=== PATIENT | female | born 1990 | race Two or more races ===

== ENCOUNTER 2024-09-10 15:31 | Emergency (ER) | payer MEDICAID, SELFPAY ==
[2024-09-10 15:43] VITALS: BP 107/71; PULSE 130; RESP 18; TEMP 36.6; O2SAT 99; BMI 25.6
[2024-09-10 16:21] VITALS: BP 110/77; PULSE 117; RESP 19; TEMP 36.9; O2SAT 97
--- NOTE | 2024-09-10 16:39 | XR_ITS ---
Examination: Abdomen sonogram, Limited Date and time of exam: September 10, 2024 1721 hrs. Indications: Upper abdominal pain nausea vomiting today Technique: Real-time noel scale transabdominal sonographic images of the upper abdomen obtained. Findings: Normal gallbladder. Normal common bile duct 0.2 cm Pancreatic head 2.0 cm Liver 16.6 cm smooth contour no focal liver lesions Normal hepatopedal portal venous flow Patent IVC Impression: Normal gallbladder Mild hepatomegaly no focal liver lesions
--- NOTE | 2024-09-10 16:40 | PD.EDRME ---
Rapid Medical Screening Exam RME Arrival date/time: 09/10/24 15:31 34-year-old female presents to the emergency department with complaints of upper abdominal pain associated with nausea. I have greeted and performed a focused initial assessment of this patient. Initial appropriate labs ordered at this time. A comprehensive ED assessment and evaluation of the patient and analysis of all test and completion of medical decision making process will be conducted by additional ED provider. Chief Complaint: Abdominal Pain Time Seen by Provider: 09/10/24 16:18 Vital signs: Vital Signs Temperature 98 F 09/10/24 15:43 Pulse Rate 130 H 09/10/24 15:43 Respiratory Rate 18 09/10/24 15:43 Blood Pressure 107/71 09/10/24 15:43 Pulse Oximetry (%) 99 09/10/24 15:43 Oxygen Delivery Method Room Air 09/10/24 15:43
[2024-09-10 16:41] VITALS: PULSE 110
[2024-09-10 17:00] LABS: Collection Type, Urine Clean Catch
[2024-09-10] MEDS: MG HYD/AL HYD/SIME (Maalox Reg) SUSP 30 ML UDC PO ×2 (17:01→19:33)
[2024-09-10] MEDS: LIDOCAINE VISCOUS 2% 15 ML UDC PO (17:01)
[2024-09-10] MEDS: ONDANSETRON ODT 4 MG TABRAP PO (17:01)
[2024-09-10 17:17] LABS: HCG Qualitative,Urine Negative
[2024-09-10 17:28] LABS: Basophils # (Auto) 0.1 Thou/mm3 (0.0-0.2); Basophils % (Auto) 1 % (0-2.5); Eosinophils # (Auto) 0.1 Thou/mm3 (0.0-0.5); Eosinophils % (Auto) 1 % (0-10); Hematocrit 42.1 % (36.0-46.0); Hemoglobin 14.6 g/dL (12.0-16.0); Immature Granulocytes % (Auto) 0 % (0-0); Immature Granulocytes Auto 0.02 Thou/mm3 (0.00-0.00); Lymphocytes # (Auto) 2.1 Thou/mm3 (1.0-4.8); Lymphocytes % (Auto) 24 % (10-50); Mean Corpuscular HGB Conc 34.7 g/dl (31.0-37.0); Mean Corpuscular Hemoglobin 28.5 pg (25.0-35.0); Mean Corpuscular Volume 82 fL (80-100); Monocytes # (Auto) 0.6 Thou/mm3 (0.0-0.8); Monocytes % (Auto) 7 % (0-12); Neutrophils # (Auto) 5.5 Thou/mm3 (1.8-7.7); Neutrophils % (Auto) 66 % (37-80); Nucleated Red Blood Cell % 0 /100 WBC (0); Platelet Count 243 Thou/mm3 (140-440); RDW Standard Deviation 36.5 fL (36.4-46.3); Red Blood Count 5.13 Miln/mm3 (4.00-5.20); White Blood Count 8.4 Thou/mm3 (3.6-11.0)
[2024-09-10 17:30] LABS: Bilirubin,Urine Negative (Negative); Blood,Urine Negative (Negative); Clarity,Urine Clear (Clear/Hazy); Color,Urine Yellow (Lt Yel-Yel); Glucose, Urine 4+ (Negative); Ketones,Urine Negative (Negative); Leukocyte Esterase,Urine Negative (Negative); Nitrite,Urine Negative (Negative); Protein,Urine Negative (Neg - Trace); RBC,Urine 6 /hpf (0-3); Specific Gravity,Urine 1.027 (1.001-1.035); Squamous Epithelial Cell,Urine 11 /hpf (0-5); Urobilinogen,Urine Negative mg/dL (0.0-1.0); WBC,Urine 13 /hpf (0-5)
[2024-09-10 17:45] LABS: Alanine Aminotransferase 15 U/L (10-49); Albumin/Globulin Ratio 1.9 (1.2-2.2); Alkaline Phosphatase 71 U/L (46-116); Anion Gap 8 (7-16); Aspartate Amino Transferase 15 U/L (0-34); BUN/Creatinine Ratio 16 Ratio (12-20); Bilirubin,Total 0.5 mg/dL (0.3-1.2); Blood Urea Nitrogen 13 mg/dL (9-23); Calcium 10.1 mg/dL (8.3-10.6); Calcium (Corrected) 10.1 mg/dL (8.5-10.1); Carbon Dioxide 28.1 mMol/L (20.0-31.0); Chloride 101 mMol/L (98-107); Creatinine (Component) 0.8 mg/dL (0.6-1.3); Estimated Creatinine Clearance 80.7 mL/min (>60); Globulin 2.7 gm/dL (2.3-3.5); Glucose 140 mg/dL (74-106); Lipase 42 U/L (12-53); Osmolality,Calculated 275 (275-295); Potassium 4.2 mMol/L (3.4-5.1); Sodium 137 mMol/L (136-145); Total Protein 7.7 gm/dL (5.7-8.2); eGFR > 60 See Note
--- NOTE | 2024-09-10 19:25 | EDNOTE_ITS ---
ED Abdominal Pain RME/HPI General Chief Complaint: Abdominal Pain Stated complaint: LOWER ABD PAIN RAD TO BACK Time seen by provider: 09/10/24 16:18 Arrival date/time: 09/10/24 15:31 RME / HPI RME / HPI narrative: 09/10/24 15:31 34-year-old female presents to the emergency department with complaints of upper abdominal pain associated with nausea. I have greeted and performed a focused initial assessment of this patient. Initial appropriate labs ordered at this time. A comprehensive ED assessment and evaluation of the patient and analysis of all test and completion of medical decision making process will be conducted by additional ED provider. ----- Dr. Morgan?s Main ED Evaluation: 34yo female presents to the ED for a chief complaint of lower abdominal pain that radiates to her epigastric area x this morning. Patient reports associated nausea, vomiting, a headache, mild body aches, and sweating. She denies any cough, sore throat, runny nose, sneezing, diarrhea or any other associated symptoms. She denies any previous abdominal surgeries. Last bowel movement was yesterday. No known allergies. Related Data Home Medications ?Medication ?Instructions ?Recorded ?Confirmed metformin 1,000 mg tablet 1,000 mg PO BID 10/29/19 10/29/19 Previous Rx's ?Medication ?Instructions ?Recorded amoxicillin 875 mg-potassium 1 tab PO BID #14 tabs 10/31/19 clavulanate 125 mg tablet (Augmentin) clindamycin HCl 300 mg capsule 600 mg (2 x 300 mg) PO TID #42 caps 10/31/19 hydrocodone 10 mg-acetaminophen 1 tab PO Q6H PRN Pain #15 tabs 10/31/19 325 mg tablet ([place]) insulin glargine 100 unit/mL 15 unit (0.15 mL) subcut HS #450 10/31/19 subcutaneous solution (Lantus multiple units U-100 Insulin) famotidine 20 mg tablet 20 mg PO QDAY #14 tabs 06/12/22 ibuprofen 600 mg tablet 600 mg PO Q6H #30 tabs 01/31/24 aluminum-mag hydroxide-simethicone 10 ml PO TID PRN indigestion #360 09/10/24 400 mg-400 mg-40 mg/5 mL oral susp mL (Advanced Antacid-Antigas) famotidine 20 mg tablet (Pepcid) 20 mg PO QDAY #10 tabs 09/10/24 nitrofurantoin 100 mg PO Q12H 7 days #14 caps 09/10/24 monohydrate/macrocrystals 100 mg capsule (Macrobid) Allergies Allergy/AdvReac Type Severity Reaction Status Date / Time No Known Allergies Allergy Verified 01/31/24 10:33 Review of Systems Review of Systems Systems Reviewed: All systems reviewed, normal except as documented Narrative Review of Systems: Gen: No fever, no chills, no weight loss, +sweating, + body aches EYES: No discharge, no visual changes, no pain HEENT: No ear pain, no congestion, no sore throat PULM: No shortness of breath, no cough, no congestion CV: No chest pain, no dyspnea on exertion, no palpitations GI: + nausea, + vomiting, no diarrhea, + pain, no constipation : No frequency, no urgency, no dysuria Musc/skel: No joint pain, no back pain Skin: No rash. Warm and dry. Psyc: No hallucinations, no depression Heme/Lymph: No easy bleeding or bruising tendencies Neuro: No weakness, + headache Past Medical History Past Medical History NEUROLOGIC: Negative Neurological Disorders CARDIAC: Negative Cardiac Disorders, Congestive Heart Failure or Hypertension RESPIRATORY: Negative Chronic Obstructive Pulmonary Disease (COPD) or Asthma GASTROINTESTINAL: Positive Pancreatitis; Negative Gastrointestinal Disorders GENITOURINARY: Positive Genitourinary Disorders and Dialysis; Negative Renal Disease MUSCULOSKELETAL: Negative Musculoskeletal Disorders ENDOCRINE: Positive Endocrine Disorders, Diabetes Mellitus Type 1 and Diabetes Mellitus Type 2 HEMATOLOGIC: Negative Sickle Cell Disease OTHER HISTORY: Negative Autoimmune Disease Family History FAMILY HISTORY: Positive Family Cardiac Disorders and Family Cancer Surgical History SURGICAL: Positive Nephrectomy Social History SMOKING STATUS: Never smoker ED Exam Narrative Physical exam: GENERAL APPEARANCE: alert and oriented x 4, well-developed, well-nourished, no acute distress VITALS: All vitals were reviewed and the pulse ox is 97% on room air, which is normal according to my interpretation. HEENT: Normocephalic, atraumatic; pupils equal, round, reactive to light; EOMI; mucous membranes pink, moist; oropharynx clear NECK: Supple LUNGS: CTABL; no wheezes, no rales, no rhonchi HEART: Regular rate, regular rhythm; normal S1, S2; no murmurs ABDOMEN: non distended; normal BS; soft, [id number] epigastric tenderness, no guarding, no rebound; no masses, no organomegaly, no hernia BACK: no CVA tenderness EXTREMITIES: atraumatic; no edema NEUROLOGIC: awake; alert and oriented x4; cranial nerves II-XII grossly intact; no focal sensory or motor deficits PSYCHIATRIC: appropriate mood and affect SKIN: warm, dry, normal color; no rashes Course Quality Measures none Orders Category Date Time Status US gall bladder Stat Exams 09/10/24 16:39 Completed CBC Stat Lab 09/10/24 17:06 Completed Comprehensive Metabolic Panel Stat Lab 09/10/24 17:06 Completed HCG Qualitative,Urine Stat Lab 09/10/24 16:57 Completed Lipase Stat Lab 09/10/24 17:06 Completed Urinalysis Stat Lab 09/10/24 16:57 Completed Urine Culture Stat Lab 09/10/24 16:57 Received Lidocaine 2% Viscous [Xylocaine 2% Viscous] Med 09/10/24 16:39 Discontinued 15 ml PO X1 ONE Ondansetron Odt [Zofran Odt] Med 09/10/24 16:39 Discontinued 4 mg PO X1 ONE mg Hyd/Al Hyd/[place] Susp [Maalox Susp] Med 09/10/24 16:39 Discontinued 30 ml PO X1 ONE mg Hyd/Al Hyd/[place] Susp [Maalox Susp] Med 09/10/24 19:29 Once 30 ml PO X1 ONE Vital Signs Vital signs: Vital Signs Temperature 98 F 09/10/24 15:43 Pulse Rate 130 H 09/10/24 15:43 Respiratory Rate 18 09/10/24 15:43 Blood Pressure 107/71 09/10/24 15:43 Pulse Oximetry (%) 99 09/10/24 15:43 Oxygen Delivery Method Room Air 09/10/24 15:43 Abdominal Pain MDM MDM Narrative MDM Narrative:: Scribe Attestation: 09/10/24 Regla Rendon am scribing for and in the presence of Dr. Morgan. Patient data External records reviewed:: [facility] previous records (Per chart review, patient was seen here on 01/31/24 for a headache.) Clinical information provided by:: patient Social determinants that could affect healthcare access:: none Patient has the following chronic illnesses:: DM How is presenting disease/condition affected by chronic disease/condition?: uneffected by Evaluation data The following diagnostics were reviewed and interpreted by me:: lab results and radiology exam(s) Lab and/or radiology exams considered but not ordered:: none Interpretation Summary: CBC is normal, Glucose is 140, LFTs are normal, Total Bilirubin is normal, Lipase is normal, HCG is negative, UA is positive for a UTI, according to my interpretation. ---- [facility] Report Signed Patient: ABRIL BENNETT Record#: [id number] Birthdate: 1990 Age/Sex: 34 / F [facility] Attending Dr: Ordering Physician: Kellee Hansen Date of Service: 09/10/24 Procedure(s): US gall bladder Accession Number(s): [id number] cc: Ravi Sharp MD; Kellee Hansen~ Examination: Abdomen sonogram, Limited Date and time of exam: September 10, 2024 1721 hrs. Indications: Upper abdominal pain nausea vomiting today Technique: Real-time noel scale transabdominal sonographic images of the upper abdomen obtained. Findings: Normal gallbladder. Normal common bile duct 0.2 cm Pancreatic head 2.0 cm Liver 16.6 cm smooth contour no focal liver lesions Normal hepatopedal portal venous flow Patent IVC Impression: Normal gallbladder Mild hepatomegaly no focal liver lesions Dictated By: Ravi Sharp MD Signed By: <Electronically signed by Ravi Sharp MD in OV> 09/10/24 1749 Medications / Prescriptions Medications or Prescriptions considered but not ordered:: none Medication administrations:: Medication Administration History Discontinued Medications Al Hydrox/Mg Hydrox/Simethicone (Mg Hyd/Al Hyd/[place] (Maalox Reg) Susp 30 Ml Udc) 30 ml PO X1 ONE Stop: 09/10/24 16:40 Last Admin: 09/10/24 17:01 Dose: 30 ml Documented By: XENA Lidocaine HCl (Lidocaine Viscous 2% 15 Ml Udc) 15 ml PO X1 ONE Stop: 09/10/24 16:40 Last Admin: 09/10/24 17:01 Dose: 15 ml Documented By: XENA Ondansetron HCl (Ondansetron Odt 4 Mg Tabrap) 4 mg PO X1 ONE; Protocol Stop: 09/10/24 16:40 Last Admin: 09/10/24 17:01 Dose: 4 mg Documented By: KF see above Consultations Consultation(s) initiated? (list below): No Diagnosis Differential diagnosis abdominal pain: acute appendicitis, diverticulitis, pancreatitis and other (cholelithiasis, cholecystitis, dehydration, electrolyte abnormality) Most likely diagnosis given after review of the tests above:: epigastric pain, UTI Admission Indicated Admission indicated?: not indicated Explain why admission is indicated or not indicated:: Admission criteria not met. Admission Request Was there a request for admission?: No Disposition Plan Disposition Plan: Discharge Discharge Attestation Discharge Attestation: The patient and all family members were given an opportunity to ask questions and understood the discharge instructions. Discharge instructions specifically effects, indications for sooner follow up or return to the emergency department, and the expected course of current diagnosis. Patient condition: Stable Discharge Plan Plan Patient Disposition: HOME (Self Care) Disposition Comment: Stable for discharge Patient condition on transfer: Stable Prescriptions/Referrals Prescriptions/Med Rec: New nitrofurantoin monohyd/m-cryst [Macrobid] 100 mg capsule 100 mg PO Q12H 7 Days Qty: 14 0RF Rx Instructions: must administer with a meal/food alum-mag hydroxide-simeth [Advanced Antacid-Antigas] 400-400-40 mg/5 mL suspension 10 ml PO TID PRN (Reason: indigestion) Qty: 360 0RF famotidine [Pepcid] 20 mg tablet 20 mg PO QDAY Qty: 10 0RF No Action metformin 1,000 mg Tablet 1,000 mg PO BID clindamycin HCl 300 mg capsule 600 mg PO TID Qty: 42 0RF Lantus U-100 Insulin 100 unit/mL Solution 15 unit subcut HS Qty: 450 0RF amoxicillin-pot clavulanate [Augmentin] 875-125 mg tablet 1 tab PO BID Qty: 14 0RF hydrocodone-acetaminophen [[place]] 10-325 mg Tablet 1 tab PO Q6H MDD 4 PRN (Reason: Pain) Qty: 15 0RF famotidine 20 mg tablet 20 mg PO QDAY Qty: 14 0RF ibuprofen 600 mg tablet 600 mg PO Q6H Qty: 30 0RF Referrals: Deandre Harvey PA-C [Primary Care Provider] - In 1 week Problem List Clinical Impression: Epigastric pain, UTI (urinary tract infection) Patient/Caregiver Discharge Instructions Discharge Activity: activity as tolerated Education Materials: Urinary Tract Infections in Women, Understanding Urinary Tract ..., ED Epigastric Pain (Uncertain Cause) Additional Instructions: Please pay attention to your body. If you are feeling worse in any way or if you are not improving in the next couple of days he should return to the ER right away. Otherwise you should follow-up with your primary care doctor within the next several days. You have several medications waiting for you at your [facility]. One of them is an antibiotic called Macrobid. You should take those until they are completely gone. This is for your urinary tract infection. Print Language: Turkish Stand Alone Forms: Esthela Award Info., Patient Portal Info Letter
== END 2024-09-10 19:46 | disposition home or self-care (01) ==
PROVIDERS: Nurse Practitioner Primary Care; Emergency Provider Emergency Medicine; PCP Family Medicine
DX: R16.0 Hepatomegaly, not elsewhere classified (principal); N39.0 Urinary tract infection, site not specified
CPT/HCPCS: 36415; 76705; 80053; 81001; 81025; 83690; 85025; 87086; 99284; J3490; Q0162; A9270

== ENCOUNTER 2025-01-24 11:10 | Emergency (ER) | payer MEDICAID, SELFPAY ==
[2025-01-24 11:33] VITALS: BP 113/70; PULSE 91; RESP 19; TEMP 36.8; O2SAT 97; BMI 29.2
--- NOTE | 2025-01-24 11:43 | PD.EDRME ---
Rapid Medical Screening Exam RME Arrival date/time: 01/24/25 11:10 34-year-old female with a history of type 2 diabetes, presents to the emergency room with a chief complaint of a blood sugar of 300, headache, weakness. Patient states she was sent over by her primary care provider. I have greeted and performed a focused initial assessment of this patient. A comprehensive ED assessment and evaluation of the patient, analysis of all test results, and completion of the medical decision making process will be conducted by additional ED providers. Chief Complaint: General Adult/Misc Complain Time Seen by Provider: 01/24/25 11:26 Vital signs: Vital Signs Temperature 98.3 F 01/24/25 11:33 Pulse Rate 91 01/24/25 11:33 Respiratory Rate 19 01/24/25 11:33 Blood Pressure 113/70 01/24/25 11:33 Pulse Oximetry (%) 97 01/24/25 11:33 Oxygen Delivery Method Room Air 01/24/25 11:33 Vital signs reviewed by provider: Yes
[2025-01-24] MEDS: ACETAMINOPHEN 325 MG TABLET 650 MG PO (11:48)
[2025-01-24] MEDS: ONDANSETRON ODT 4 MG TABRAP PO (11:49)
[2025-01-24 12:05] LABS: Collection Type, Urine Clean Catch
[2025-01-24 12:07] LABS: Basophils # (Auto) 0.1 Thou/mm3 (0.0-0.2); Basophils % (Auto) 1 % (0-2.5); Eosinophils # (Auto) 0.1 Thou/mm3 (0.0-0.5); Eosinophils % (Auto) 1 % (0-10); Hematocrit 37.2 % (36.0-46.0); Hemoglobin 13.3 g/dL (12.0-16.0); Immature Granulocytes % (Auto) 0 % (0-0); Immature Granulocytes Auto 0.02 Thou/mm3 (0.00-0.00); Lymphocytes % (Auto) 32 % (10-50); Mean Corpuscular HGB Conc 35.8 g/dl (31.0-37.0); Mean Corpuscular Hemoglobin 27.5 pg (25.0-35.0); Mean Corpuscular Volume 77 fL (80-100); Monocytes # (Auto) 0.4 Thou/mm3 (0.0-0.8); Monocytes % (Auto) 6 % (0-12); Neutrophils # (Auto) 3.7 Thou/mm3 (1.8-7.7); Neutrophils % (Auto) 59 % (37-80); Nucleated Red Blood Cell % 0 /100 WBC (0); Platelet Count 279 Thou/mm3 (140-440); RDW Standard Deviation 34.9 fL (36.4-46.3); Red Blood Count 4.84 Miln/mm3 (4.00-5.20); White Blood Count 6.2 Thou/mm3 (3.6-11.0)
[2025-01-24 12:15] LABS: Beta Hydroxybutyrate 0.2 mmol/L (<0.6)
[2025-01-24 12:21] LABS: Alanine Aminotransferase 21 U/L (10-49); Albumin, Serum 4.6 gm/dL (3.5-5.0); Albumin/Globulin Ratio 1.6 (1.2-2.2); Alkaline Phosphatase 80 U/L (46-116); Anion Gap 8 (7-16); Aspartate Amino Transferase 18 U/L (0-34); BUN/Creatinine Ratio 15 Ratio (12-20); Bilirubin,Total 0.8 mg/dL (0.3-1.2); Blood Urea Nitrogen 12 mg/dL (9-23); Calcium 9.2 mg/dL (8.3-10.6); Calcium (Corrected) 9.2 mg/dL (8.5-10.1); Carbon Dioxide 27.2 mMol/L (20.0-31.0); Chloride 98 mMol/L (98-107); Creatinine (Component) 0.8 mg/dL (0.6-1.3); Estimated Creatinine Clearance 86.1 mL/min (>60); Globulin 2.9 gm/dL (2.3-3.5); Glucose 362 mg/dL (74-106); Lipase 40 U/L (12-53); Osmolality,Calculated 281 (275-295); Potassium 4.5 mMol/L (3.4-5.1); Sodium 133 mMol/L (136-145); Total Protein 7.5 gm/dL (5.7-8.2); eGFR > 60 See Note
[2025-01-24 12:43] LABS: HCG Qualitative,Urine Negative
[2025-01-24 12:45] LABS: Bacteria,Urine Rare; Bilirubin,Urine Negative (Negative); Blood,Urine Negative (Negative); Budding Yeast,Urine Present; Clarity,Urine Clear (Clear/Hazy); Color,Urine Colorless (Lt Yel-Yel); Glucose, Urine 4+ (Negative); Ketones,Urine Negative (Negative); Leukocyte Esterase,Urine Negative (Negative); Nitrite,Urine Negative (Negative); PH,Urine 7.5 (5.0-7.0); Protein,Urine Negative (Neg - Trace); RBC,Urine < 1 /hpf (0-3); Specific Gravity,Urine 1.029 (1.001-1.035); Squamous Epithelial Cell,Urine 1 /hpf (0-5); Urobilinogen,Urine Negative mg/dL (0.0-1.0); WBC,Urine < 1 /hpf (0-5)
--- NOTE | 2025-01-24 16:46 | PD.EDWEAK ---
ED Weakness RME/HPI General Chief complaint: General Adult/Misc Complain Stated complaint: BLOOD SUGAR 375, TOOK 40U INSULIN THIS AM Time Seen by Provider: 01/24/25 11:26 Arrival date/time: 01/24/25 11:10 Limitations: no limitations RME / HPI RME / HPI Narrative: 01/24/25 11:10 34-year-old female with a history of type 2 diabetes, presents to the emergency room with a chief complaint of a blood sugar of 300, headache, weakness. Patient states she was sent over by her primary care provider. I have greeted and performed a focused initial assessment of this patient. A comprehensive ED assessment and evaluation of the patient, analysis of all test results, and completion of the medical decision making process will be conducted by additional ED providers. DR. ABRAHAM MAIN ED EVALUATION: 34 year old female with past medical history significant for diabetes mellitus presents to the Emergency Department with complaints of high blood glucose with associated generalized weakness. No other symptoms reported. No tobacco, alcohol, or substance use. PCP: [facility] Related Data Home Medications ?Medication ?Instructions ?Recorded ?Confirmed metformin 1,000 mg tablet 1,000 mg PO BID 10/29/19 10/29/19 Previous Rx's ?Medication ?Instructions ?Recorded amoxicillin 875 mg-potassium 1 tab PO BID #14 tabs 10/31/19 clavulanate 125 mg tablet (Augmentin) clindamycin HCl 300 mg capsule 600 mg (2 x 300 mg) PO TID #42 caps 10/31/19 hydrocodone 10 mg-acetaminophen 1 tab PO Q6H PRN Pain #15 tabs 10/31/19 325 mg tablet ([place]) insulin glargine 100 unit/mL 15 unit (0.15 mL) subcut HS #450 10/31/19 subcutaneous solution (Lantus multiple units U-100 Insulin) famotidine 20 mg tablet 20 mg PO QDAY #14 tabs 06/12/22 ibuprofen 600 mg tablet 600 mg PO Q6H #30 tabs 01/31/24 aluminum-mag hydroxide-simethicone 10 ml PO TID PRN indigestion #360 09/10/24 400 mg-400 mg-40 mg/5 mL oral susp mL (Advanced Antacid-Antigas) famotidine 20 mg tablet (Pepcid) 20 mg PO QDAY #10 tabs 09/10/24 ondansetron 4 mg disintegrating 4 mg PO Q6H PRN nausea and 09/10/24 tablet vomiting #14 tabs Allergies Allergy/AdvReac Type Severity Reaction Status Date / Time No Known Allergies Allergy Verified 01/24/25 11:13 Review of Systems Review of Systems Systems Reviewed: All systems reviewed, normal except as documented Narrative Review of Systems: GEN: No fever, no chills, no weight loss EYES: No discharge, no visual changes, no pain HEENT: No ear pain, no congestion, no sore throat PULM: No shortness of breath, no cough, no congestion CV: No chest pain, no dyspnea on exertion, no palpitations GI: No nausea, no vomiting, no diarrhea, no pain, no constipation : No frequency, no urgency and no dysuria MUSC/SKEL: No joint pain, no back pain SKIN: No rash PSYCH: No hallucinations, no depression HEME/LYMPH: No easy bleeding or bruising tendencies NEURO: + generalized weakness, no headache Past Medical History Past Medical History GASTROINTESTINAL: Positive Pancreatitis GENITOURINARY: Positive Genitourinary Disorders and Dialysis ENDOCRINE: Positive Endocrine Disorders and Diabetes Mellitus Type 2 Family History FAMILY HISTORY: Positive Family Cardiac Disorders and Family Cancer Surgical History SURGICAL: Positive Nephrectomy Social History SMOKING STATUS: Never smoker SUBSTANCE USE: does not use ALCOHOL: Never ED Exam General Limitations: Present no limitations General appearance: Present alert and in no apparent distress Head Head exam: Present atraumatic, normocephalic and normal inspection Eye Eye exam: Present normal appearance, PERRL and EOMI ENT ENT exam: Present normal exam, normal oropharynx and mucous membranes moist Neck Neck exam: Present normal inspection, full ROM and trachea midline Chest Chest inspection: Present normal inspection and symmetric chest wall rise Respiratory Respiratory exam: Present normal lung sounds bilaterally Cardiovascular Cardiovascular exam: Present regular rate, normal rhythm and normal heart sounds Abdominal Exam Abdominal exam: Present soft and normal bowel sounds Extremities Exam Extremities exam: Present normal inspection and full ROM Back Exam Back exam: Present normal inspection and full ROM Neurological Exam Neurological exam: Present alert, oriented X3 and CN II-XII intact Psychiatric Psychiatric exam: Present normal affect and normal mood Skin Skin exam: Present warm, dry, intact and normal color Course Quality Measures none Orders Category Date Time Status Fingerstick [Bedside Blood Glucose] NOW Care 01/24/25 11:42 Active Beta Hydroxybutyrate Stat Lab 01/24/25 11:48 Completed CBC Stat Lab 01/24/25 11:48 Completed CMP [Comprehensive Metabolic Panel] Stat Lab 01/24/25 11:48 Completed HCG Qualitative,Urine Stat Lab 01/24/25 11:55 Completed Lipase Stat Lab 01/24/25 11:48 Completed UA [Urinalysis] Stat Lab 01/24/25 11:55 Completed Urine Culture Stat Lab 01/24/25 11:55 Received Acetaminophen Tab [Tylenol Tab] Med 01/24/25 11:41 Discontinued 650 mg PO X1 ONE Insulin Regular Med 01/24/25 17:26 Discontinued 12 unit SC X1 ONE Ondansetron Odt [Zofran Odt] Med 01/24/25 11:41 Discontinued 4 mg PO X1 ONE Vital Signs Vital signs: Vital Signs Temperature 98.3 F 01/24/25 11:33 Pulse Rate 91 01/24/25 11:33 Respiratory Rate 19 01/24/25 11:33 Blood Pressure 113/70 01/24/25 11:33 Pulse Oximetry (%) 97 01/24/25 11:33 Oxygen Delivery Method Room Air 01/24/25 11:33 Weakness MDM Narrative MDM Narrative:: Sasha Harris am scribing for and in the presence of Dr. Abraham. Patient data External records reviewed:: [facility] previous records (Reviewed last ED visit dated 09/10/24 discharged with the following: Epigastric pain) Clinical information provided by:: patient Social determinants that could affect healthcare access:: none Patient has the following chronic illnesses:: Diabetes mellitus How is presenting disease/condition affected by chronic disease/condition?: exacerbated by Evaluation data The following diagnostics were reviewed and interpreted by me:: lab results Lab and/or radiology exams considered but not ordered:: none Interpretation Summary: Hyperglycemia, blood glucose 362. Medications / Prescriptions Medications or Prescriptions considered but not ordered:: none Medication administrations:: Medication Administration History Discontinued Medications Acetaminophen (Acetaminophen 325 Mg Tablet) 650 mg PO X1 ONE Stop: 01/24/25 11:42 Last Admin: 01/24/25 11:48 Dose: 650 mg Documented By: OA Insulin Human Regular (Insulin Hum Regular 1 Unit/0.01 Ml (Per Unit)) 12 unit SC X1 ONE Stop: 01/24/25 17:27 Ondansetron HCl (Ondansetron Odt 4 Mg Tabrap) 4 mg PO X1 ONE; Protocol Stop: 01/24/25 11:42 Last Admin: 01/24/25 11:49 Dose: 4 mg Documented By: OA see above Consultations Consultation(s) initiated? (list below): No Diagnosis Weakness Differential Diagnosis: acute myocardial infarction, sepsis, dehydration and other (electrolyte imbalance) Most likely diagnosis given after review of the tests above:: Hyperglycemia Admission Indicated Admission indicated?: not indicated Admission Request Was there a request for admission?: No Disposition Plan Disposition Plan: Discharge Discharge Attestation Discharge Attestation: The patient and all family members were given an opportunity to ask questions and understood the discharge instructions. Discharge instructions specifically effects, indications for sooner follow up or return to the emergency department, and the expected course of current diagnosis. Patient condition: Stable Discharge Plan Plan Patient Disposition: HOME (Self Care) Patient condition on transfer: Stable Prescriptions/Referrals Prescriptions/Med Rec: No Action metformin 1,000 mg Tablet 1,000 mg PO BID clindamycin HCl 300 mg capsule 600 mg PO TID Qty: 42 0RF Lantus U-100 Insulin 100 unit/mL Solution 15 unit subcut HS Qty: 450 0RF amoxicillin-pot clavulanate [Augmentin] 875-125 mg tablet 1 tab PO BID Qty: 14 0RF hydrocodone-acetaminophen [[place]] 10-325 mg Tablet 1 tab PO Q6H MDD 4 PRN (Reason: Pain) Qty: 15 0RF famotidine 20 mg tablet 20 mg PO QDAY Qty: 14 0RF ibuprofen 600 mg tablet 600 mg PO Q6H Qty: 30 0RF alum-mag hydroxide-simeth [Advanced Antacid-Antigas] 400-400-40 mg/5 mL suspension 10 ml PO TID PRN (Reason: indigestion) Qty: 360 0RF famotidine [Pepcid] 20 mg tablet 20 mg PO QDAY Qty: 10 0RF ondansetron 4 mg tablet,disintegrating 4 mg PO Q6H PRN (Reason: nausea and vomiting) Qty: 14 0RF Referrals: Deandre Harvey PA-C [Primary Care Provider] - In 1 week Problem List Clinical Impression: Hyperglycemia Patient/Caregiver Discharge Instructions Education Materials: High Blood Sugar (Hyperglycemia), Healthy Meals for Diabetes, ED Diabetes with High Blood Sugar, ED Diet: Diabetes Additional Instructions: Please consider asking you doctor about an endocrine consult to better control your diabetes. Please follow-up with your primary care physician within a week. Return to the Emergency Department as needed. Also do a diabetic journal 4x/day as we talked about. Print Language: Maori Stand Alone Forms: Esthela Award Info., Patient Portal Info Letter
[2025-01-24 17:02] VITALS: BP 102/69; PULSE 83; RESP 18; TEMP 36.6; O2SAT 99
== END 2025-01-24 18:08 | disposition home or self-care (01) ==
PROVIDERS: Nurse Practitioner Family; Emergency Provider Family Medicine; PCP Family Medicine
DX: E11.65 Type 2 diabetes mellitus with hyperglycemia (principal); Z79.84 Long term (current) use of oral hypoglycemic drugs
CPT/HCPCS: 36415; 80053; 81001; 81025; 82010; 83690; 85025; 87086; 99283; Q0162; A9270

== ENCOUNTER → 2025-02-11 | Outpatient (CLI) | payer MEDICAID, SELFPAY ==
--- NOTE | 2025-02-11 08:46 | XR_ITS ---
Exam: elbow bilateral, 6 views Technique: Elbow AP, oblique Exam date and time: February 11, 2025 1008 hours INDICATIONS: Bilateral elbow pain beginning 4 weeks ago FINDINGS: No fracture or dislocation involving either elbow No erosive or other significant arthritic change involving either elbow IMPRESSION: No fracture or arthritic change involving either elbow.
--- NOTE | 2025-02-11 08:47 | XR_ITS ---
Examination: Bilateral wrists 6 views TECHNIQUE: AP oblique lateral each wrist total 6 views INDICATIONS: Bilateral wrist pain 4 weeks. FINDINGS: No fracture or dislocation involving either wrist No avascular necrosis. No erosive or other significant arthritic change involving either wrist IMPRESSION: No erosive or other significant arthritic change involving either wrist
--- NOTE | 2025-02-11 08:47 | XR_ITS ---
Examination: Bilateral hands, 6 views. Technique: AP, Oblique, Lateral each hand total 6 views Date and time of exam: February 11, 2025 10:00 AM INDICATIONS: Bilateral hand pain beginning 4 weeks ago. FINDINGS: Mild juxta-articular bone demineralization No fracture or dislocation involving either hand No avascular necrosis. No erosive or other significant arthritic change involving either hand IMPRESSION: Mild juxta-articular bone demineralization No erosive or other significant arthritic change involving either hand
== END | disposition home or self-care (01) ==
PROVIDERS: PCP Family Medicine; Referring Provider Physician Assistant; Visit Provider Physician Assistant
DX: M25.521 Pain in right elbow (principal); M25.522 Pain in left elbow; M25.842 Other specified joint disorders, left hand; M25.841 Other specified joint disorders, right hand; M25.532 Pain in left wrist; M25.531 Pain in right wrist
CPT/HCPCS: 73080; 73110; 73130

== ENCOUNTER 2025-05-23 09:28 | Emergency (ER) | payer MEDICAID, SELFPAY ==
[2025-05-23 09:54] VITALS: BP 108/74; PULSE 92; RESP 18; TEMP 36.8; O2SAT 98
--- NOTE | 2025-05-23 10:02 | XR_ITS ---
Examination: CT brain head without contrast. 2-D sagittal coronal reconstructions Date and time of exam:May 23, 2025 1022 hours INDICATIONS: Intermittent head pain beginning one month ago COMPARISON: January 31, 2024 CTDI: vol (mGy):44.9 DLP: (mGycm):845 Technique: Multiple CT axial sections of the brain have been obtained, 5 mm slice thickness. Contrast has not been administered. 2-D sagittal, coronal reconstructions have been obtained Low dose protocols were performed. One or more of the following dose reduction techniques were used; automated exposure control, adjustment of the mA and/or KV according to patient size, use of iterative reconstruction technique. Findings: No significant ventricular enlargement. Intra-axial or extra-axial hemorrhage density is not seen. No mass effect or midline shift Basal cisterns are not remarkable. Fourth ventricle is midline. Cranial vault intact. Impression: Negative for acute hemorrhage, mass effect or midline shift As clinically warranted, brain MRI follow-up would best assess for demyelinating disease
--- NOTE | 2025-05-23 10:03 | PD.EDHA ---
ED Headache RME/HPI General Chief Complaint: Headache Stated Complaint: HEADACHE X 3 WKS; DIZZY X 1 DAY Time Seen by Provider: 05/23/25 09:32 Source: patient Arrival date/time: 05/23/25 09:28 35-year-old female with no known medical history presents to the emergency room with a chief complaint of a headache x 3 weeks. Mode of arrival: ambulatory Limitations: no limitations Related Data Home Medications ?Medication ?Instructions ?Recorded ?Confirmed metformin 1,000 mg tablet 1,000 mg PO BID 10/29/19 10/29/19 Previous Rx's ?Medication ?Instructions ?Recorded amoxicillin 875 mg-potassium 1 tab PO BID #14 tabs 10/31/19 clavulanate 125 mg tablet (Augmentin) clindamycin HCl 300 mg capsule 600 mg (2 x 300 mg) PO TID #42 caps 10/31/19 hydrocodone 10 mg-acetaminophen 1 tab PO Q6H PRN Pain #15 tabs 10/31/19 325 mg tablet ([place]) insulin glargine 100 unit/mL 15 unit (0.15 mL) subcut HS #450 10/31/19 subcutaneous solution (Lantus multiple units U-100 Insulin) famotidine 20 mg tablet 20 mg PO QDAY #14 tabs 06/12/22 ibuprofen 600 mg tablet 600 mg PO Q6H #30 tabs 01/31/24 aluminum-mag hydroxide-simethicone 10 ml PO TID PRN indigestion #360 09/10/24 400 mg-400 mg-40 mg/5 mL oral susp mL (Advanced Antacid-Antigas) famotidine 20 mg tablet (Pepcid) 20 mg PO QDAY #10 tabs 09/10/24 ondansetron 4 mg disintegrating 4 mg PO Q6H PRN nausea and 09/10/24 tablet vomiting #14 tabs acetaminophen-caffeine 500 mg-65 1 tab PO Q8H PRN pain #30 tabs 05/23/25 mg tablet (Excedrin Tension Headache) Allergies Allergy/AdvReac Type Severity Reaction Status Date / Time No Known Allergies Allergy Verified 05/23/25 09:31 Review of Systems Review of Systems Systems Reviewed: All systems reviewed, normal except as documented Constitutional Constitutional: Reports system reviewed and no additional complaints, except as documented, Denies fatigue, Denies fever(s), Reports headache(s) and Denies weakness Eyes Eyes: Reports system reviewed and no additional complaints, except as documented, Denies blurry vision and Denies change in vision ENT Ears, Nose, Mouth, and Throat: Reports system reviewed and no additional complaints, except as documented, Denies otalgia, Reports headache(s), Denies nasal congestion, Denies throat swelling and Denies vertigo Cardiovascular Cardiovascular: Reports system reviewed and no additional complaints, except as documented, Denies chest pain, Denies dyspnea and Denies dyspnea on exertion Respiratory Respiratory: Reports system reviewed and no additional complaints, except as documented, Denies chest congestion, Denies cough, Denies dyspnea, Denies dyspnea on exertion and Denies wheezing Gastrointestinal Gastrointestinal: Reports system reviewed and no additional complaints, except as documented, Denies abdominal pain, Denies cramping, Denies nausea and Denies vomiting Genitourinary Genitourinary: Reports system reviewed and no additional complaints, except as documented Musculoskeletal Musculoskeletal: Reports system reviewed and no additional complaints, except as documented and Denies back pain Integumentary/Breasts Skin/Breast: Reports system reviewed and no additional complaints, except as documented and Denies wounds Neurologic Neurologic: Reports system reviewed and no additional complaints, except as documented, Denies confusion, Reports headache(s), Denies lack of coordination, Denies vertigo and Denies weakness Psychiatric Psychiatric: Reports system reviewed and no additional complaints, except as documented, Denies anxiety, Denies confusion, Denies depression, Denies paranoia, Denies suicidal ideation and Denies tactile hallucinations Endocrine Endocrine: Reports system reviewed and no additional complaints, except as documented and Denies fatigue Hematologic/Lymphatic Hematologic/Lymphatic: Reports system reviewed and no additional complaints, except as documented and Denies lymphadenopathy Allergic/Immunologic Allergic/Immunologic: Reports system reviewed and no additional complaints, except as documented, Denies throat swelling, Denies urticaria and Denies wheezing Past Medical History Past Medical History NEUROLOGIC: Negative Neurological Disorders CARDIAC: Negative Cardiac Disorders, Congestive Heart Failure or Hypertension RESPIRATORY: Negative Chronic Obstructive Pulmonary Disease (COPD) or Asthma GASTROINTESTINAL: Positive Pancreatitis; Negative Gastrointestinal Disorders GENITOURINARY: Positive Genitourinary Disorders and Dialysis; Negative Renal Disease MUSCULOSKELETAL: Negative Musculoskeletal Disorders ENDOCRINE: Positive Endocrine Disorders, Diabetes Mellitus Type 1 and Diabetes Mellitus Type 2 HEMATOLOGIC: Negative Sickle Cell Disease OTHER HISTORY: Negative Autoimmune Disease Family History FAMILY HISTORY: Positive Family Cardiac Disorders and Family Cancer Surgical History SURGICAL: Positive Nephrectomy Social History SMOKING STATUS: Never smoker SUBSTANCE USE: does not use ED Exam General Limitations: Present no limitations General appearance: Present alert and in no apparent distress Head Head exam: Present atraumatic, normocephalic and normal inspection Eye Eye exam: Present normal appearance, PERRL and EOMI ENT ENT exam: Present normal exam, normal oropharynx and mucous membranes moist Neck Neck exam: Present normal inspection, full ROM and trachea midline Chest Chest inspection: Present normal inspection and symmetric chest wall rise Respiratory Respiratory exam: Present normal lung sounds bilaterally Cardiovascular Cardiovascular exam: Present regular rate, normal rhythm and normal heart sounds Abdominal Exam Abdominal exam: Present soft and normal bowel sounds Extremities Exam Extremities exam: Present normal inspection and full ROM Back Exam Back exam: Present normal inspection and full ROM Neurological Exam Neurological exam: Present alert, oriented X3, CN II-XII intact, normal gait and reflexes normal; Absent motor sensory deficit Expanded Neurological Exam Patient oriented to: Present person, place and time Speech: Present fluid speech Coma scale eye opening: spontaneous Coma scale motor response: obeys commands Coma scale verbal response: oriented Coma scale total: 15 Psychiatric Psychiatric exam: Present normal affect and normal mood Skin Skin exam: Present warm, dry, intact and normal color Course Quality Measures none Orders Category Date Time Status CT head/brain wo con Stat Exams 05/23/25 10:02 Completed CBC Stat Lab 05/23/25 10:44 Completed CMP [Comprehensive Metabolic Panel] Stat Lab 05/23/25 10:44 Completed Vital Signs Vital signs: Vital Signs Temperature 98.2 F 05/23/25 09:54 Pulse Rate 92 05/23/25 09:54 Respiratory Rate 18 05/23/25 09:54 Blood Pressure 108/74 05/23/25 09:54 Pulse Oximetry (%) 98 05/23/25 09:54 Headache MDM Narrative MDM Narrative:: 35-year-old female with no known medical history presents to the emergency room with a chief complaint of a headache x 3 weeks. Patient is hemodynamically stable and in no apparent distress Physical examination shows a normal neurological exam. Pupils are PERRLA EOMs are intact the patient has a normal steady gait. Patient states she is having some photophobia and this has been going on for the last [address] of the head brain was completed and was negative for any acute findings Patient was discharged and educated to follow-up with primary care provider in the next 24 to 48 hours and return to the emergency room for any evidence of worsening signs or symptoms Patient data External records reviewed:: [facility] previous records Clinical information provided by:: patient Social determinants that could affect healthcare access:: none Patient has the following chronic illnesses:: No chronic illness How is presenting disease/condition affected by chronic disease/condition?: no chronic disease Evaluation data The following diagnostics were reviewed and interpreted by me:: lab results and radiology exam(s) Lab and/or radiology exams considered but not ordered:: Labs and radiology exams considered and ordered Interpretation Summary: CT head and brain-Findings: No significant ventricular enlargement. Intra-axial or extra-axial hemorrhage density is not seen. No mass effect or midline shift Basal cisterns are not remarkable. Fourth ventricle is midline. Cranial vault intact. Impression: Negative for acute hemorrhage, mass effect or midline shift As clinically warranted, brain MRI follow-up would best assess for demyelinating disease Medications / Prescriptions Medications or Prescriptions considered but not ordered:: No medication given Medication administrations:: No medication given Consultations Consultation(s) initiated? (list below): No Diagnosis Differential diagnosis headache: migraine, tension headache, subarachnoid hemorrhage, headache and sinusitis Most likely diagnosis given after review of the tests above:: Tension headache Admission Indicated Admission indicated?: not indicated Admission Request Was there a request for admission?: No Disposition Plan Disposition Plan: Discharge Discharge Attestation Discharge Attestation: The patient and all family members were given an opportunity to ask questions and understood the discharge instructions. Discharge instructions specifically effects, indications for sooner follow up or return to the emergency department, and the expected course of current diagnosis. Patient condition: Stable Discharge Plan Plan Patient Disposition: HOME (Self Care) Discharge Disposition comment: Stable Prescriptions/Referrals Prescriptions/Med Rec: New Excedrin Tension Headache 500-65 mg tablet 1 tab PO Q8H PRN (Reason: pain) Qty: 30 0RF No Action metformin 1,000 mg Tablet 1,000 mg PO BID clindamycin HCl 300 mg capsule 600 mg PO TID Qty: 42 0RF Lantus U-100 Insulin 100 unit/mL Solution 15 unit subcut HS Qty: 450 0RF amoxicillin-pot clavulanate [Augmentin] 875-125 mg tablet 1 tab PO BID Qty: 14 0RF hydrocodone-acetaminophen [[place]] 10-325 mg Tablet 1 tab PO Q6H MDD 4 PRN (Reason: Pain) Qty: 15 0RF famotidine 20 mg tablet 20 mg PO QDAY Qty: 14 0RF ibuprofen 600 mg tablet 600 mg PO Q6H Qty: 30 0RF alum-mag hydroxide-simeth [Advanced Antacid-Antigas] 400-400-40 mg/5 mL suspension 10 ml PO TID PRN (Reason: indigestion) Qty: 360 0RF famotidine [Pepcid] 20 mg tablet 20 mg PO QDAY Qty: 10 0RF ondansetron 4 mg tablet,disintegrating 4 mg PO Q6H PRN (Reason: nausea and vomiting) Qty: 14 0RF Referrals: Deandre Harvey PA-C [Primary Care Provider] - In 1 week Problem List Clinical Impression: Tension headache Patient/Caregiver Discharge Instructions Education Materials: ED Headache, Tension Additional Instructions: Please follow-up with your primary care provider in the next [address] of your head and brain was negative for any acute findings. Please follow-up with your primary care provider for further management of your headaches as a referral to a neurologist may be indicated if signs and symptoms continue. For any evidence of worsening signs or symptoms return to the emergency room immediately Print Language: Upper Sorbian Stand Alone Forms: Esthela Award Info., Patient Portal Info Letter HE/MARCELINO Supervising Physician ASHLEIGH Supervising Physician: Dr. Morgan
[2025-05-23 11:14] LABS: Basophils # (Auto) 0.0 Thou/mm3 (0.0-0.2); Basophils % (Auto) 1 % (0-2.5); Eosinophils # (Auto) 0.1 Thou/mm3 (0.0-0.5); Eosinophils % (Auto) 2 % (0-10); Hematocrit 41.0 % (36.0-46.0); Hemoglobin 13.7 g/dL (12.0-16.0); Immature Granulocytes Auto 0.01 Thou/mm3 (0.00-0.00); Lymphocytes # (Auto) 2.1 Thou/mm3 (1.0-4.8); Lymphocytes % (Auto) 34 % (10-50); Mean Corpuscular HGB Conc 33.4 g/dl (31.0-37.0); Mean Corpuscular Hemoglobin 27.8 pg (25.0-35.0); Mean Corpuscular Volume 83 fL (80-100); Monocytes # (Auto) 0.4 Thou/mm3 (0.0-0.8); Monocytes % (Auto) 7 % (0-12); Neutrophils # (Auto) 3.4 Thou/mm3 (1.8-7.7); Neutrophils % (Auto) 57 % (37-80); Nucleated Red Blood Cell # 0.00 Thou/mm3 (0.00-0.00); Nucleated Red Blood Cell % 0 /100 WBC (0); Platelet Count 231 Thou/mm3 (140-440); RDW Standard Deviation 37.9 fL (36.4-46.3); Red Blood Count 4.93 Miln/mm3 (4.00-5.20); White Blood Count 6.1 Thou/mm3 (3.6-11.0)
[2025-05-23 11:20] LABS: Alanine Aminotransferase 27 U/L (10-49); Albumin, Serum 4.5 gm/dL (3.5-5.0); Albumin/Globulin Ratio 1.5 (1.2-2.2); Alkaline Phosphatase 57 U/L (46-116); Anion Gap 11 (7-16); Aspartate Amino Transferase 25 U/L (0-34); BUN/Creatinine Ratio 12 Ratio (12-20); Bilirubin,Total 0.9 mg/dL (0.3-1.2); Blood Urea Nitrogen 7 mg/dL (9-23); Calcium 9.7 mg/dL (8.3-10.6); Calcium (Corrected) 9.7 mg/dL (8.5-10.1); Carbon Dioxide 26.4 mMol/L (20.0-31.0); Chloride 102 mMol/L (98-107); Creatinine (Component) 0.6 mg/dL (0.6-1.3); Estimated Creatinine Clearance 108.8 mL/min (>60); Globulin 3.1 gm/dL (2.3-3.5); Glucose 102 mg/dL (74-106); Osmolality,Calculated 275 (275-295); Potassium 4.2 mMol/L (3.4-5.1); Sodium 139 mMol/L (136-145); Total Protein 7.6 gm/dL (5.7-8.2); eGFR > 60 See Note
== END 2025-05-23 12:07 | disposition home or self-care (01) ==
PROVIDERS: Emergency Provider Nurse Practitioner Family; PCP Family Medicine
DX: G44.209 Tension-type headache, unspecified, not intractable (principal)
CPT/HCPCS: 36415; 70450; 80053; 85025; 99282